=== PATIENT | female | born 1940 | race Caucasian/White ===

== ENCOUNTER 2024-10-13 10:29 | Inpatient (IN) | payer BC, MEDICARE, OTHER ==
[~2024-10-13] VITALS: Ht 172.7 cm; Wt 80.6 kg
[2024-10-13] VITALS (8 sets, daily range): BP systolic 154–171; BP diastolic 57–61; PULSE 58–86; RESP 13–18; TEMP 97.5–97.8; O2SAT 94–98
[~2024-10-13 10:29] MED LIST: ASCO500C18 PO; CALC600T35 PO; CHOL400T8 PO; LIDO700A32 TOP; MAGN400C PO; OMEP20CA15 PO; SIMV-341 PO
--- NOTE | 2024-10-13 10:41 | ELECTROCARDIOGRAPH REPORT ---
[facility] Test Date: 2024-10-13 Test Time: 10:40:03 Pat Name: DAGO MACARIO Department: [facility]- Patient ID: [facility]-[id number] Room: Gender: F Quality Liaison: : 1940 Requested By: FORTINO DE LA CRUZ Order Number: [id number] Reading MD: Dr. Fortino De La Cruz Measurements Intervals [place] Rate: 72 P: 36 RI: 162 QRS: 40 QRSD: 110 T: 31 QT: 456 QTc: 500 Interpretive Statements Sinus rhythm Multiple ventricular premature complexes Low voltage, extremity and precordial leads Abnormal R-wave progression, early transition Minimal ST depression, lateral leads Minimal ST elevation, inferior leads Borderline prolonged QT interval Electronically Signed On 10-13-2024 10:41:[address] Fortino De La Cruz Please click the below link to view image of tracing.
[2024-10-13 11:02] LABS: BASOPHILS # (AUTO) 0.1 X10'3 (0-0.2); BASOPHILS % (AUTO) 1.2 % (0-1); EOSINOPHILS # (AUTO) 0.6 X10'3 (0-0.9); EOSINOPHILS % (AUTO) 8.7 % (0-6); HEMATOCRIT 34.2 % (35.0-45.0); LYMPHOCYTES # (AUTO) 1.6 X10'3 (1.1-4.8); LYMPHOCYTES % (AUTO) 21.3 % (21-51); MEAN CORPUSCULAR HEMOGLOBIN 24.8 PG (27.0-31.0); MEAN CORPUSCULAR HGB CONC 32.3 g/dL (33.0-36.5); MEAN CORPUSCULAR VOLUME 76.7 FL (78-98); MEAN PLATELET VOLUME 8.9 FL (7.4-10.4); MONOCYTES # (AUTO) 0.9 X10'3 (0-0.9); MONOCYTES % (AUTO) 12.4 % (2-12); NEUTROPHILS # (AUTO) 4.1 X10'3 (1.8-7.7); NEUTROPHILS % (AUTO) 56.4 % (42-75); PLATELET COUNT 318 X10'3 (140-440); RED BLOOD COUNT 4.46 X10'6 (4.20-5.60); RED CELL DISTRIBUTION WIDTH 15.8 % (11.5-14.5); WHITE BLOOD COUNT 7.3 X10'3 (4.5-11.0)
--- NOTE | 2024-10-13 11:06 | RADIOLOGY REPORT ---
EXAM: DI CHEST,SINGLE VIEW Indication: CP Technique: Single frontal view of the chest was obtained Comparison: None FINDINGS: Lines and Tubes: None Lungs: Small right pleural effusion and bibasilar opacities. Trace left pleural effusion. No pneumothorax. Cardiomediastinal contours: Unremarkable Bones: No acute osseous abnormality. IMPRESSION: Small right pleural effusion and bibasilar opacities. Trace left pleural effusion.
[2024-10-13 11:12] LABS: ALANINE AMINOTRANSFERASE 21 U/L (12-78); ALBUMIN 3.2 G/DL (3.4-5.0); ALBUMIN/GLOBULIN RATIO 0.9 (1.1-1.5); ALKALINE PHOSPHATASE 88 IU/L (46-116); ANION GAP 5 (8-16); ASPARTATE AMINO TRANSFERASE 17 U/L (10-37); BILIRUBIN,TOTAL 0.5 MG/DL (0.1-1.0); BLOOD UREA NITROGEN 16 MG/DL (7-18); BUN/CREATININE RATIO 15.5 (10.0-20.0); CALCIUM 9.1 MG/DL (8.5-10.1); CHLORIDE 108 MMOL/L (99-107); CREATININE 1.03 MG/DL (0.40-0.90); GLUCOSE 98 MG/DL (70-104); POTASSIUM 4.2 MMOL/L (3.5-5.1); SODIUM 146 MMOL/L (135-145); TOTAL CARBON DIOXIDE 32.8 MMOL/L (24-32); TOTAL PROTEIN 6.6 G/DL (6.4-8.2); eCRCL 42 ML/MIN; eGFR 51 ML/MIN
[2024-10-13 11:15] LABS: APTT 27 SECONDS (22-32); D-DIMER 0.64 MG/L FEU (0-0.50); PROTHROMBIN TIME 10.5 SECONDS (9.0-12.0)
[2024-10-13 11:19] LABS: PRO BRAIN NATRIURETIC PEPTIDE 931 PG/ML (0-450)
--- NOTE | 2024-10-13 12:09 | Physician Documentation ---
History of Present Illness ~ Chief Complaint: Edema Stated Complaint: R/O DVT IN LEGS Time Seen by MD: 10:50 OK to notify your PCP?: Yes Primary Medical Doctor: Benny Source: patient, RN/, RN notes reviewed, old records Mode of Arrival: POV Exam Limitations: no limitations HPI 84 year old female presents to the emergency department after being evaluated by Dr. Elliott. Patient is having leg swelling in the right greater than the left. She states that she has been experiencing recent weakness and shortness of breath. Patient denies any cardiac history and state she does not see a rubber heel and sole press tender. She states that she rarely gets palpitations and cannot identify the last time that she had them. Patient denies any other associated symptoms at this time. Patient denies any other alleviating or exacerbating factors. Medication Reconciliation Allergies: Coded Allergies: No Known Allergies (Unverified , 08/21/18) Scheduled Balsalazide Disodium (Balsalazide Disodium), 1 CAP PO BID, (Reported) Calcium Carbonate (Calcium), PO DAILY, (Reported) Cholecalciferol (Vitamin D), PO DAILY, (Reported) Omeprazole (Omeprazole), 1 CAP PO BID, (Reported) Simvastatin (Zocor), 1 TABLET PO HS, (Reported) Discontinued Medications Lidocaine (Lidoderm), 1 PATCH TOP Q12H PRN Discontinued Reason: Pt. Refused Magnesium Oxide (Magnesium), 1 CAP PO Q2D, (Reported) Discontinued Reason: Pt. Refused Past Medical History Past Medical History: Chronic Back Pain, Spine Compression Past Surgical History: appendectomy, cholecystectomy, hysterectomy Smoking Status: Former smoker Alcohol Use: Occasionally Drug Use: none Lives with: Family Lives In: Home Review of Systems All Other Systems at this time: Reviewed and Negative ROS As stated above in the HPI, otherwise all systems are reviewed and negative. Physical Exam Vital Signs: RN Vital Signs have been reviewed: Yes, Temperature: 97.7, Source: Temporal, Heart Rate: 61, Respiratory Rate: 18, BP: 153/54, Pulse Oximetry: 97, Weight: 81.820 Oxygen Flow Rate: 0 Pulse Oximetry Reflects: adequate oxygenation General Appearance General: The patient is tired and weak, she is well developed, well nourished, nontoxic appearing and is in no acute distress. Skin: [place], warm and dry with no rashes. HEENT: Head was normocephalic and atraumatic. Eyes - pupils equal, round, reactive to light and accommodation. Extraocular movements were intact. Conjunctivae were nonicteric. Ears - bilateral tympanic membranes were normal. The mouth and oropharynx were clear with moist mucous membranes. There were no pharyngeal exudates or erythema. Neck: Supple and nontender. There was no jugular venous distention, lymphadenopathy, thyromegaly or masses. Chest: Crackles at base of lung. No accessory muscle use. No dullness to percussion. Heart: Rate regular and rhythmic. S1, S2. No murmurs. Palpation of the chest wall was normal. No rubs or thrills. Abdomen: Soft, nontender and nondistended. Positive bowel sounds. No guarding or rebound. No hepatosplenomegaly or palpable masses. Extremities: 2+ pitting edema wit swelling on her right leg greater than left. The patient moves all extremities. Pulses were equal and symmetric. Neurologic: Cranial nerves II-XII were intact. Sensation was intact to light touch throughout. Motor strength was 5/5 in all four extremities. Deep tendon reflexes were intact in both upper and lower extremities. Psychologic: The patient was oriented to person, place and time. The patient demonstrated appropriate judgement and insight. Progress Progress Note 1230: The residents were spoken to at this time who were informed on the patients case and kindly agreed to admit the patient to the hospital. Results/Orders Reviewed/noted all lab results: Yes Results/Orders Orders - ERROL GILES MD Chest,Single View (10/13/24 10:35) Monitor (10/13/24 10:35) Saline Lock (10/13/24 10:35) Oxygen (10/13/24 10:35) Electrocardiogram (10/13/24 10:35) Vl Venous (10/13/24 10:43) Page Hospitalist (10/13/24 12:24) Fill Out Med Reconciliation (10/13/24 12:24) Echocardiogram (10/13/24 12:24) Completed Orders - ERROL GILES MD Chest,Single View (10/13/24 10:35) Cbc/Diff (10/13/24 10:35) PBNP (10/13/24 10:35) Electrocardiogram (10/13/24 10:35) CMP (10/13/24 10:35) Hs Troponin I W Calculations (10/13/24 10:35) Hs Troponin I W Calculations (10/13/24 12:35) Hs Troponin I W Calculations (10/13/24 13:35) D-Dimer (10/13/24 10:43) Pt Inr (10/13/24 10:43) PTT (10/13/24 10:43) Vl Venous (10/13/24 10:43) Echocardiogram (10/13/24 12:24) Procalcitonin (10/13/24 12:29) Furosemide 40mg Inj (Lasix Inj) (10/13/24 12:35) C-Reactive Protein (10/13/24 10:41) Vital Signs 10/13/24 10/13/24 10/13/24 10:33 12:11 12:11 Temp 97.7 97.7 Pulse 61 58 Resp 18 16 16 B/P (MAP) 153/54 145/73 (97) Pulse Ox 97 96 O2 Flow Rate 0 0 Laboratory Tests Test 10/13/24 10:41 10/13/24 10:53 White Blood Count 7.3 Red Blood Count 4.46 Hemoglobin 11.0 L Hematocrit 34.2 L Mean Corpuscular Volume 76.7 L Mean Corpuscular Hemoglobin 24.8 L Mean Corpuscular Hemoglobin Concent 32.3 L Red Cell Distribution Width 15.8 H Platelet Count 318 Mean Platelet Volume 8.9 Neutrophils (%) (Auto) 56.4 Lymphocytes (%) (Auto) 21.3 Monocytes (%) (Auto) 12.4 H Eosinophils (%) (Auto) 8.7 H Basophils (%) (Auto) 1.2 H Neutrophils # (Auto) 4.1 Lymphocytes # (Auto) 1.6 Monocytes # (Auto) 0.9 Eosinophils # (Auto) 0.6 Basophils # (Auto) 0.1 CBC Comment Erythrocyte Sedimentation Rate 10 Sodium Level 146 H Potassium Level 4.2 Chloride Level 108 H Carbon Dioxide Level 32.8 H Anion Gap 5 L Blood Urea Nitrogen 16 Creatinine 1.03 H Estimated GFR/1.73 m2 51 BUN/Creatinine Ratio 15.5 Glucose Level 98 Osmolality 300 Calcium Level 9.1 Total Bilirubin 0.5 Aspartate Amino Transf (AST/SGOT) 17 Alanine Aminotransferase (ALT/SGPT) 21 Alkaline Phosphatase 88 Troponin I High Sensitivity 13 C-Reactive Protein 0.21 Pro-B-Type Natriuretic Peptide 931 H Total Protein 6.6 Albumin 3.2 L Globulin 3.4 Albumin/Globulin Ratio 0.9 L Procalcitonin < 0.05 Chemistry Comments Prothrombin Time 10.5 INR International Normalized Ratio 1.0 Activated Partial Thromboplast Time 27 D-Dimer 0.64 H D-Dimer Comment Coagulation Comments Re-Evaluation Re-Evaluation : Re-Evaluation: Improved Progress Patient was seen and examined. Patient was given reassurance. Patient received IV fluids laboratory work was obtained. Patient received some Lasix for heart failure. Echocardiogram is also ordered. There was no obvious signs of in fection so no antibiotics were given at this time. Laboratory work shows normal CBC WBC 7.3 with some anemia hemoglobin hematocrit is 11 and 34. Some microcytic anemia with a MCV of 76.7. No left shift. Troponin x3 were negative. Chemistry shows sodium slightly elevated at 146 potassium 4.2 chloride 108 CO2 32.8 BUN 16 creatinine 1.03. Urinalysis shows a specific gravity of 1.010. CTA of the chest was reassuring including chest and vascular ultrasound. Echocardiogram was also ordered. Thoracentesis has been ordered. I then discussed the case with the hospitalist for admission and further workup and care. Continuous satellite project site monitor interpretation shows normal sinus rhythm heart rate 60s, no ectopy, normal, my interpretation. Pulse oximetry monitor interpretation shows normal oxygenation 98% room air, normal, my interpretation. EKG/XRAY/CT/US/VASC/MRI EKG : Intepreting Monitor?: Yes Additional Comment Ordering Physician: ERROL GILES MD Exam Name: ELECTROCARDIOGRAM Technologist: [facility] Test Date: 2024-10-13 Test Time: 10:40:03 Pat Name: DAGO MACARIO Department: [facility] Patient ID: [id number] Room: Gender: F Communications Equipment Installer: : 1940 Requested By: ERROL GILES Order Number: [id number] Reading MD: Dr. Errol Giles Measurements Intervals [place] Rate: 72 P: 36 [place]: 162 QRS: 40 QRSD: 110 T: 31 QT: 456 QTc: 500 Interpretive Statements Sinus rhythm Multiple ventricular premature complexes Low voltage, extremity and precordial leads Abnormal R-wave progression, early transition Minimal ST depression, lateral leads Minimal ST elevation, inferior leads Borderline prolonged QT interval Electronically Signed On 10-13-2024 10:41:[address] Errol Giles Please click the below link to view image of tracing. Chest X-Ray : Additional Comments Ordering Physician: ERROL GILES MD Exam: CHEST,SINGLE VIEW EXAM: DI CHEST,SINGLE VIEW Indication: CP Technique: Single frontal view of the chest was obtained Comparison: None FINDINGS: Lines and Tubes: None Lungs: Small right pleural effusion and bibasilar opacities. Trace left pleural effusion. No pneumothorax. Cardiomediastinal contours: Unremarkable Bones: No acute osseous abnormality. IMPRESSION: Small right pleural effusion and bibasilar opacities. Trace left pleural effusion. Electronically Signed by:ARELI JACKSON MD Date & Time: 10/13/24 1103 Ultrasound : Impression Bilateral lower extremity venous duplex Clinical History: Pain, swelling Comparison: None Technique: Duplex Doppler evaluation of the deep venous systems of both lower extremities from the common femoral veins to the popliteal veins including color Doppler and spectral/pulsed waveform analysis was performed. Findings: RIGHT SIDE: The common femoral vein demonstrates appropriate compressibility and waveform variability. There is compressibility/patency of the great saphenous vein at the proximal thigh. The femoral vein demonstrates appropriate compressibility and waveform variability. The deep femoral vein demonstrates appropriate compressibility and waveform variability. The popliteal vein demonstrates appropriate compressibility and waveform variability. There is normal compressibility at the tibioperoneal trunk. LEFT SIDE: The common femoral vein demonstrates appropriate compressibility and waveform variability. There is compressibility/patency of the great saphenous vein at the proximal thigh. The femoral vein demonstrates appropriate compressibility and waveform variability. The deep femoral vein demonstrates appropriate compressibility and waveform variability. The popliteal vein demonstrates appropriate compressibility and waveform variability. There is normal compressibility at the tibioperoneal trunk. Impression: No right or left femoropopliteal venous thrombosis. Dictated by:CHRISTOPHER SALMON MD Dictation date and time:10/13/24 1221 Electronically Signed by: CHRISTOPHER SALMON MD Date and Time: 10/13/24 1221 Heart Score: Heart Score Response (Comments) Value History Slightly Suspicious 0 EKG Normal 0 Age >65 2 Risk Factors 1 or 2 risk factors 1 Troponin Normal limit 0 Total 3 Medical Decision Making Differential Dx:Considerations: Include: martinez's cyst, Cancer, Cellulitis, Congestive heart failure, Compartment syndrome, Contusion, Deep venous thrombosis, Liver failure, Malnutrition, Muscle spasm, Plantaris rupture, Popliteal vein aneurysm, Renal faliure, Strain, Superfic thrombophlebitis, Venous insufficiency, Other Departure Time of Disposition: 12:30 Disposition: 09 ADMITTED INPATIENT Admitted to Inpatient Unit: yes, to hospitalist Admission Level of Care: PCU with Tele Impression: Primary Impression: Pleural effusion Additional Impressions: Peripheral edema Heart failure Condition: Fair Referrals: NO PRIMARY CARE PROVIDER (PCP) Education Educated: Patient Educated regarding: diagnosis, need for follow up Signature Scribe Signature: Scribed for Errol Giles MD by Uche Reddy . 10/13/24 12:34 Attestation: The note accurately reflects work and decisions made by me.Errol Giles MD 10/13/24 12:09 ERROL GILES MD Oct 13, 2024 12:09 UCHE GIRALDO Oct 13, 2024 12:34
[2024-10-13] MEDS ORDERED: furosemide 10 MG/1 ML 10ml inj IV ONE (12:20)
--- NOTE | 2024-10-13 12:24 | VASCULAR REPORT ---
Bilateral lower extremity venous duplex Clinical History: Pain, swelling Comparison: None Technique: Duplex Doppler evaluation of the deep venous systems of both lower extremities from the common femora l veins to the popliteal veins including color Doppler and spectral/pulsed waveform analysis was perf ormed. Findings: RIGHT SIDE: The common femoral vein demonstrates appropriate compressibility and waveform variability. There is compressibility/patency of the great saphenous vein at the proximal thigh. The femoral vein demonstrates appropriate compressibility and waveform variability. The deep femoral vein demonstrates appropriate compressibility and waveform variability. The popliteal vein demonstrates appropriate compressibility and waveform variability. There is normal compressibility at the tibioperoneal trunk. LEFT SIDE: The common femoral vein demonstrates appropriate compressibility and waveform variability. There is compressibility/patency of the great saphenous vein at the proximal thigh. The femoral vein demonstrates appropriate compressibility and waveform variability. The deep femoral vein demonstrates appropriate compressibility and waveform variability. The popliteal vein demonstrates appropriate compressibility and waveform variability. There is normal compressibility at the tibioperoneal trunk. Impression: No right or left femoropopliteal venous thrombosis.
[2024-10-13] MEDS ORDERED: mag hydrox/Alum hydrox/simeth 30ml oral suspension PO PRN (12:35)
[2024-10-13] MEDS ORDERED: ondansetron/PF 4mg/2ml inj IV PRN (12:35)
[2024-10-13] MEDS ORDERED: acetaminophen 325mg tablet PO PRN (12:35)
[2024-10-13] MEDS ORDERED: potassium Cl 40MEQ/1/2NS 520ml 520 ML IV PRN (12:35)
[2024-10-13] MEDS ORDERED: magnesium Cl slow-release 64mg tablet PO PRN (12:35)
[2024-10-13] MEDS ORDERED: magnesium sulf-water 2g/50mL 50 ML IV PRN (12:35)
[2024-10-13] MEDS ORDERED: potassium Cl 20 mEq SR tablet PO PRN ×2 (12:35)
[2024-10-13] MEDS ORDERED: magnesium sulf-water 4G/100mL 100 ML IV PRN (12:35)
[2024-10-13] MEDS ORDERED: ipratropium/albuterol 3ml nebule NEB PRN (13:35)
[2024-10-13 14:03] LABS: C-REACTIVE PROTEIN 0.21 MG/DL (0.0-0.5)
--- NOTE | 2024-10-13 14:04 | HISTORY AND PHYSICAL-Residence ---
History & Physical Providers to CC Resident Creating Document: LAMIN ACOSTA, RES ~ History of Present Illness Primary Medical Doctor: Dr. 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 The patient mentioned that she started feeling shortness of breath approximately three weeks ago. Among the exacerbating factors the patient mentioned that her symptoms is worse with activity being able to walk half a block before she gets short of breath The patient also endorses orthopnea which started approximately one month ago. She currently uses one pillow for sleeping but she noticed shortness of breath when she lays down flat or over her side. Associated to her shortness of breath she also endorses bilateral lower extremity swelling and pain 7/10 in intensity, without radiation, described as sharp pain, which started approximately at the same time. The patient also mentioned diarrhea which started one month ago, she has been following her primary care physician Dr. Zapata and a new medication for ulcerative colitis was started. The patient endorses that she has been having diarrhea, her last episode this morning described as brown in color, liquid, denies any recent history of travel or immobilization. The patient currently denies chest pain, palpitations, abdominal pain, urinary symptoms. Allergies: Coded Allergies: No Known Allergies (Unverified , 08/21/18) Home Medications Home Medications Active Lidoderm (Lidocaine) 1 Each Adh..patch 1 Patch TOP Q12H PRN 5 Days Reported Magnesium (Magnesium Oxide) 400 Mg Capsule 1 Cap PO Q2D Calcium (Calcium Carbonate) 600 Mg Tablet PO DAILY Vitamin C (Ascorbic Acid) 500 Mg Capsule.er 1 Cap PO DAILY 30 Days Vitamin D (Cholecalciferol) 400 Unit Tablet PO DAILY Zocor (Simvastatin) 10 Mg Tablet 1 Tablet PO HS Omeprazole 20 Mg Capsule. 1 Cap PO BID Past Medical History Past Medical History Ulcerative colitis diagnosed last year. Started balsalazide two weeks ago. Whelan esophagus diagnosed three years ago, following Dr. Jacobo. Taking omeprazole 20 mg daily. Past Surgical History Surgical History Comment Hysterectomy at the age of [age] years old because of uterus bleeding. Appendectomy at her earlier 40s. Cholecystectomy at her late 40s. Bilateral Oophorectomy. She got an endoscopy this year showing her whelan esophagus. Last colonoscopy seven years ago reported as normal. Past Social History Smoking: Quit greater than 1 year (Quit smoking in 2018, she used to smoke half a pack a day for at least 10 years.) Alcohol Use: Rarely Drug Use: None Lives with: Alone (Per patient her daughter and granddaughter lives in the town. 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 HEENT: Conjunctive are pink, sclerae clear, no icterus, pupil is equal in both sides, reactive to light, no ear discharge, no pharyngeal erythema or an edema. Neck: Supple, no JVD, no lymphadenopathy and thyromegaly. Chest: Equal air entry on both lungs, presence of crackles in bilateral bases, dullness to percussion in bilateral bases of the lungs. Cardiovascular: S1-S2 regular sinus rhythm and, regular rate, no gallops, no rubs, no murmurs Abdomen: No visible peristalsis, Bowel sounds present on auscultation, soft, nontender, no guarding, no rigidity Extremities: No obvious deformities, 3+ lower extremity edema, capillary refill intact, peripheral pulsations are intact on both sides Central Nervous System: No focal neurological deficits, no motor or sensory weakness in all 4 extremities, could move all 4 extremities, 2+ deep tendon reflexes, negative Babinski. Musculoskeletal: No joint swelling, deformities, inflammations, and no scoliosis and back tenderness Skin: Warm and dry. Diagnostic Data Last Recorded Lab Results: 10/13/24 1041 10/13/24 1041 Diagnostic Data: Laboratory Tests Test 10/13/24 10:53 Prothrombin Time 10.5 SECONDS (9.0-12.0) INR International Normalized Ratio 1.0 INR Activated Partial Thromboplast Time 27 SECONDS (22-32) D-Dimer 0.64 MG/L FEU (0-0.50) H D-Dimer Comment Coagulation Comments Advance Care Planning Advanced Care plannin - 30 Minutes (I spent a total of 17 minutes on reviewing various resuscitative measures/ACP with the patient at the time of admission. The patient has decided on a full code status.) Additional Plan Assessment and plan: 84 years old female patient came to the hospital with chief complaint of shortness of breaths lower extremity swelling. Bacterial pneumonia: Covering Gram-positive and Gram-negative microorganisms: Curb 65: 2 moderate risk group: 6.8% 30 day mortality. Possible acute exacerbation of diastolic congestive heart failure with preserved ejection fraction: Possible cor pulmonale: Wells score: 3, D-dimer elevated: The patient came to the hospital with chief complaint of shortness of breath. Evidenced crackles in bilateral bases in physical exam. On physical exam bilateral 3+ pedal lower extremity edema is evidenced. Chest x-ray showing: Small right pleural effusion and bibasilar opacities. Trace left pleural effusion. ProBNP 931. Echocardiogram: LVEF 60%. RVSP 50 mmHg. Right ventricle appears mildly dilated with normal contractility. Left atrium mildly dilated. Follow-up CTA of the chest. Ceftriaxone 1 g daily. Azithromycin 500 mg daily. Culturelle 58861 mg p.o. b.i.d. DuoNebs q.4h PRN. DuoNebs q.6h scheduled. Furosemide 40 mg IV b.i.d. Incentive spirometry every 2 hours while awake. Acute kidney injury on CKD likely secondary to renal tubular stasis: Current creatinine 1.03, GFR 51. Unknown baseline creatinine. Elevated proBNP 931. Follow-up urine lytes. Lactated ringer 20 mL/hour. Acute diarrhea: Ulcerative colitis: The patient came to the hospital endorsing that she has been experiencing diarrhea for the last month on and off. She reported her last episode of diarrhea this morning. Follow-up C diff. Follow-up of on parasite. Follow-up stool culture. We will continue balsalazide 750 mg b.i.d. after med reconciliation. Whelan's esophagus: GERD: Pantoprazole 40 mg p.o. daily. Code status: Full code DVT prophylaxis: SCDs and heparin. Analgesia/sedation: None Line/tube: PIV GI prophylaxis: Protonix Nutrition: Heart healthy diet PT: Ordered Prognosis: Guarded Disposition: The patient will be admitted to ortho floor with telemetry. Lamin Martins Internal Medicine Resident [facility] Date of Service: Oct 13, 2024 Billing Provider: SIMEON VERMA MD, FRANCO LUIS, RES Oct 13, 2024 14:03
[2024-10-13] MEDS ORDERED: iohexol 350MG/ML 100ml bottle IV ONE (14:37)
[2024-10-13] MEDS: ipratropium/albuterol 3ml nebule NEB SCH (14:41)
[2024-10-13] MEDS: furosemide 40mg/4ml inj IV ONE (16:39)
[2024-10-13] MEDS: lactobacillus rhamnosus 10,000 MMU CELLS/CAPSULE PO SCH (16:40)
[2024-10-13] MEDS: azithromycin 250mg tablet PO SCH (17:09)
[2024-10-13] MEDS: normal saline 500ml IV soln 500 ML IV ONE (17:09)
[2024-10-13] MEDS: azithromycin 250mg tablet PO ONE (18:30)
[2024-10-13] MEDS: methylPREDNISolone sod succ 125mg/2ml vial IV ONE (18:50)
[2024-10-13] MEDS: predniSONE 20 mg tablet PO ONE (18:51)
[2024-10-13 19:05] LABS: BILIRUBIN,URINE NEGATIVE (Neg); CLARITY,URINE CLEAR (Clear); COLOR,URINE YELLOW (Yellow); GLUCOSE, URINE NEGATIVE (Neg); KETONES,URINE NEGATIVE (Neg); LEUKOCYTE ESTERASE ,URINE NEGATIVE (Neg); OCCULT BLOOD,URINE NEGATIVE (Neg); PH,URINE 6.5 (4.8-8.0); PROTEIN,URINE NEGATIVE (Neg); UROBILINOGEN,URINE 0.2 E.U/dL (0.2-1.0)
--- NOTE | 2024-10-13 19:20 | CARDIOLOGY REPORT ---
APPROVED REPORT EXAM: Comprehensive 2D, Doppler, and color-flow Echocardiogram. 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 130.7 cm/s AoV VTI 31.3 cm AO Peak GR. 6.8 mmHg AO Mean GR. 3 mmHg LVOT VTI 30.11 cm LVOT Peak Aiden. 107.8 cm/s REJI(VTI)/BSA 3.03 cm2/m2 ERJI (VTI) 3.03 cm2 Mitral Valve MV E Velocity 91.3 cm/s MV Peak Gr. 4 mmHg MV DECEL TIME 188 ms MV A Velocity 55.8 cm/s MV PHT 48 ms E/A Ratio 1.6 MVA (PHT) 4.58 cm2 MV VMax98.4 cm/s TDI Medial E' P. V 8.14 cm/s E/Medial E' 11.2 Tricuspid Valve TR P. Velocity 316 cm/s RAP ESTIMATE 10 mmHg TR Peak Gr. 40 mmHg RVSP 50 mmHg Pulmonary Vein S1 Velocity 24.1 cm/s D2 Velocity 53.3 cm/s PVa Idwkittw92.9 cm/s PVa Pbpnzlue97 msec LEFT VENTRICLE LV is normal in size with mild septal hypertrophy. Overall systolic function is normal. overallLVEF is 60%. RIGHT VENTRICLE RV appears mildly dilated with normal contractility. RVSP is estimated at 50 mmHG. ATRIA Left atrium is mildly dilated. AORTIC VALVE Trileaflet AV appears sclerotic without stenosis. No insufficiency. MITRAL VALVE MV is thickened with mild annular calcification and no stenosis. mild toModerate mitral regurgitation . TRICUSPID VALVE The tricuspid valve is normal in structure. Trace tricuspid regurgitation. PULMONIC VALVE The pulmonary valve is normal in structure. Trace pulmonic regurgitation. GREAT VESSELS The aortic root is normal in size. The ascending aorta is normal in size. The IVC is normal in size a nd collapses >50% with inspiration. PERICARDIUM There is no pericardial effusion. Other Information Study Quality: Adequate Conclusion overallLVEF is 60%. LV is normal in size with mild septal hypertrophy. Overall systolic function is normal. RV appears mildly dilated with normal contractility. RVSP is estimated at 50 mmHG. Trileaflet AV appears sclerotic without stenosis. No insufficiency. mild toModerate mitral regurgitation. Trace tricuspid regurgitation. Trace pulmonic regurgitation. There is no pericardial effusion.
[2024-10-13 19:25] LABS: SODIUM,URINE RANDOM 127 MEQ/L; TOTAL PROTEIN,URINE RANDOM < 6.0 MG/DL
[2024-10-13 19:31] LABS: NITRITES, URINE NEGATIVE (Neg); UA COLLECTION TYPE CLN CATCH MIDSTREAM
[2024-10-13 19:39] LABS: OSMOLALITY UA 509 MOSM/K (50-1400)
[2024-10-13 19:41] LABS: UA EOSINOPHILS FEW EOS /HPF
[2024-10-13] MEDS: K and/or MAG REPLACEMENT MC SCH (20:00)
[2024-10-13] MEDS ORDERED: docusate sod 100mg capsule PO SCH (20:00)
[2024-10-13] MEDS ORDERED: furosemide 10 MG/1 ML 10ml inj IV SCH (20:00)
[2024-10-13] MEDS: metoprolol succinate 25mg (24-HOUR) SR. Tablet PO SCH (20:07)
[2024-10-13] MEDS: furosemide 40mg/4ml inj IV SCH (20:07)
[2024-10-13] MEDS: CefTRIAXone/D5W-Rocephin 1gm 50 ML IV SCH (20:58)
[2024-10-13] MEDS: ringers solution, lacted 1,000 ML IV SCH (21:29)
[2024-10-14] VITALS (9 sets, daily range): BP systolic 115–145; BP diastolic 40–57; PULSE 60–68; RESP 16–18; TEMP 97.3–98.3; O2SAT 92–99
[2024-10-14 04:54] LABS: BASOPHILS % (AUTO) 0.3 % (0-1); EOSINOPHILS % (AUTO) 0.1 % (0-6); HEMATOCRIT 33.8 % (35.0-45.0); HEMOGLOBIN 11.1 g/dl (12.0-16.0); LYMPHOCYTES # (AUTO) 1.4 X10'3 (1.1-4.8); LYMPHOCYTES % (AUTO) 19.5 % (21-51); MEAN CORPUSCULAR HEMOGLOBIN 24.7 PG (27.0-31.0); MEAN CORPUSCULAR HGB CONC 32.9 g/dL (33.0-36.5); MONOCYTES % (AUTO) 0.7 % (2-12); NEUTROPHILS # (AUTO) 5.5 X10'3 (1.8-7.7); NEUTROPHILS % (AUTO) 79.4 % (42-75); PLATELET COUNT 299 X10'3 (140-440); RED CELL DISTRIBUTION WIDTH 15.8 % (11.5-14.5); WHITE BLOOD COUNT 6.9 X10'3 (4.5-11.0)
[2024-10-14 05:28] LABS: ALANINE AMINOTRANSFERASE 24 U/L (12-78); ALBUMIN 3.3 G/DL (3.4-5.0); ALBUMIN/GLOBULIN RATIO 0.9 (1.1-1.5); ALKALINE PHOSPHATASE 89 IU/L (46-116); ANION GAP 7 (8-16); ASPARTATE AMINO TRANSFERASE 14 U/L (10-37); BILIRUBIN,TOTAL 0.4 MG/DL (0.1-1.0); BLOOD UREA NITROGEN 18 MG/DL (7-18); BUN/CREATININE RATIO 17.5 (10.0-20.0); CALCIUM 9.3 MG/DL (8.5-10.1); CHLORIDE 106 MMOL/L (99-107); CREATININE 1.03 MG/DL (0.40-0.90); GLUCOSE 183 MG/DL (70-104); MAGNESIUM 1.8 MG/DL (1.5-2.4); POTASSIUM 4.4 MMOL/L (3.5-5.1); PRO BRAIN NATRIURETIC PEPTIDE 1402 PG/ML (0-450); SODIUM 145 MMOL/L (135-145); TOTAL CARBON DIOXIDE 31.8 MMOL/L (24-32); TOTAL PROTEIN 6.9 G/DL (6.4-8.2); eCRCL 42 ML/MIN; eGFR 51 ML/MIN
[2024-10-14] MEDS ORDERED: methylPREDNISolone sod succ 125mg/2ml vial IV SCH (06:00)
[2024-10-14] MEDS: predniSONE 20 mg tablet PO SCH (07:30)
[2024-10-14] MEDS: losartan 25mg tablet PO SCH (07:56)
--- NOTE | 2024-10-14 08:02 | RADIOLOGY REPORT ---
CLINICAL INFORMATION: 84 years old, Female; Shortness of breath. TECHNIQUE: Axial CTA images of the chest were obtained after the uneventful administration of 100 mL of Omnipaque 350 IV contrast. Coronal and sagittal reformatted images and MIP images were obtained, reviewed, and stored. One or more of the following dose reduction techniques were used: Automated exp osure control. Adjustment of mA and/or kV according to patient size. CTDIvol = 27.15, 12.69, 0.07, 0.07 mGy DLP = 483.88 mGy-cm COMPARISON: Chest radiograph dated 10/13/2024 FINDINGS: Pulmonary arteries: No evidence of pulmonary embolism. Aorta: No aneurysm or evidence of dissection. Moderate atherosclerotic calcification. Cardiac: Mild cardiomegaly. [id number] coronary artery calcification. Mediastinum/jailene: No mass or adenopathy. Lungs: Moderate right and small left pleural effusions with overlying atelectasis. Mild interlobular septal thickening, may be seen with a mild degree of interstitial pulmonary edema / pulmonary vascula r congestion in the appropriate clinical setting. No focal consolidation. No pneumothorax. Respirator y motion artifact limits evaluation for subtle findings. Chest wall: Visualized portions of the chest wall appear unremarkable. Upper abdomen: Hepatic steatosis. Cholecystectomy. Moderate fatty infiltration of the pancreas. Bones: No fracture or suspicious intraosseous lesions. IMPRESSION: 1. No evidence for pulmonary embolism. 2. Moderate right and small left pleural effusions with overlying atelectasis. 3. Mild interlobular septal thickening, may be seen with interstitial pulmonary edema or pulmonary va scular congestion in the appropriate clinical setting. 4. Additional findings as described above.
[2024-10-14] MEDS ORDERED: BALS750C PO (11:31)
--- NOTE | 2024-10-14 12:44 | PROGRESS NOTE- Residence ---
Progress Note - Resident Providers to CC Resident Creating Document: WALTER ANGIEDARCIE Feilz, RES ~ Antibiotic Timeout Antibiotic Ordered?: Yes Subjective The patient has been evaluated at the bedside, the patient reports significant improvement of symptoms. Her main symptom fatigue and shortness of breath has improved. Objective Vital Signs Date Time Temp Pulse Resp B/P (MAP) Pulse Ox O2 Delivery O2 Flow Rate FiO2 10/14/24 10:22 97.8 68 16 138/49 (78) 95 Room Air 10/14/24 08:00 0.0 21 Physical exam: General: Well alert, well oriented, not confused, not agitated, not in acute distress, well cooperated during the physical. HEENT: Conjunctive are pink, sclerae clear, no icterus, pupil is equal in both sides, reactive to light, no ear discharge, no pharyngeal erythema or an edema. Neck: Supple, no JVD, no lymphadenopathy and thyromegaly. Chest: Equal air entry on both lungs, presence of crackles in bilateral bases- mild improved, dullness to percussion in bilateral bases of the lungs. Cardiovascular: S1-S2 regular sinus rhythm and, regular rate, no gallops, no rubs, no murmurs Abdomen: No visible peristalsis, Bowel sounds present on auscultation, soft, nontender, no guarding, no rigidity Extremities: No obvious deformities, 2+ lower extremity edema, capillary refill intact, peripheral pulsations are intact on both sides Central Nervous System: No focal neurological deficits, no motor or sensory weakness in all 4 extremities, could move all 4 extremities, 2+ deep tendon reflexes, negative Babinski. Musculoskeletal: No joint swelling, deformities, inflammations, and no scoliosis and back tenderness Skin: Warm and dry. Result Diagram: 10/14/24 0414 10/14/24 0414 Coagulation Studies Laboratory Tests Test 10/13/24 10:53 Prothrombin Time 10.5 SECONDS (9.0-12.0) INR International Normalized Ratio 1.0 INR Activated Partial Thromboplast Time 27 SECONDS (22-32) D-Dimer 0.64 MG/L FEU (0-0.50) H D-Dimer Comment Coagulation Comments Assessment Assessment 84 years old female patient came to the hospital with chief complaint of shortness of breaths lower extremity swelling. Plan Plan Bacterial pneumonia: Covering Gram-positive and Gram-negative microorganisms: Curb 65: 2 moderate risk group: 6.8% 30 day mortality. Bilateral pleural effusions: Acute exacerbation of diastolic congestive heart failure with preserved ejection fraction with ejection fraction of 60%: Cor pulmonale: Pulmonary embolism-ruled out: Wells score: 3, D-dimer elevated: The patient came to the hospital with chief complaint of shortness of breath. Evidenced crackles in bilateral bases in physical exam. On physical exam bilateral 2+ pedal lower extremity edema was evidenced during admission. Chest x-ray showing: Small right pleural effusion and bibasilar opacities. Trace left pleural effusion. ProBNP [id number]. Echocardiogram: LVEF 60%. RVSP 50 mmHg. Right ventricle appears mildly dilated with normal contractility. Left atrium mildly dilated. CTA of the chest: No evidence for pulmonary embolism. Moderate right and small left pleural effusions with overlying atelectasis. Mild interlobular septal thickening, may be seen with interstitial pulmonary edema or pulmonary vascular congestion in the appropriate clinical setting. Thoracentesis was ordered, no enough fluid to be removed. Ceftriaxone 1 g daily. Azithromycin 500 mg daily. Prednisone 20 mg daily. Culturelle 27351 mg p.o. b.i.d. DuoNebs q.4h PRN. DuoNebs q.6h scheduled. Furosemide 40 mg IV b.i.d. Incentive spirometry every 2 hours while awake. Acute on chronic kidney failure, possible ATN: Interstitial nephritis: Current creatinine 1.03, GFR 51. Unknown baseline creatinine. Elevated proBNP 931. Urine lytes: FeNa: 2.1%, fractional excretion of urea: 52.5%, urine sodium: 127, urinalysis/serum osmolality 1.67. Showing intrinsic GERA. Patient is currently on prednisone 20 mg daily. Acute diarrhea: Ulcerative colitis: The patient came to the hospital endorsing that she has been experiencing diarrhea for the last month on and off. She reported her last episode of diarrhea this morning. Follow-up C diff. Follow-up ova and parasite. Follow-up stool culture and occult stool blood. We will continue balsalazide 750 mg b.i.d. after med reconciliation. Wilks's esophagus: GERD: Pantoprazole 40 mg p.o. daily. Code status: Full code DVT prophylaxis: SCDs. Analgesia/sedation: None Line/tube: PIV GI prophylaxis: Protonix Nutrition: Heart healthy diet PT: Ordered Prognosis: Guarded Disposition: Pending physical therapy evaluation. Anticipated discharge tomorrow. Darcie Martins Internal Medicine Resident [facility] Date of Service: Oct 14, 2024 Billing Provider: SIMEON VERMA MD,DARCIE PENDLETON, RES Oct 14, 2024 12:44
[2024-10-14] MEDS: simvastatin 20mg tablet PO SCH (20:20)
[2024-10-15] VITALS (10 sets, daily range): BP systolic 115–139; BP diastolic 34–53; PULSE 57–79; RESP 15–18; TEMP 97.6–98; O2SAT 93–97
[2024-10-15 06:29] LABS: BASOPHILS # (AUTO) 0.1 X10'3 (0-0.2); BASOPHILS % (AUTO) 0.5 % (0-1); EOSINOPHILS # (AUTO) 0.2 X10'3 (0-0.9); EOSINOPHILS % (AUTO) 1.9 % (0-6); HEMATOCRIT 31.7 % (35.0-45.0); HEMOGLOBIN 10.4 g/dl (12.0-16.0); LYMPHOCYTES # (AUTO) 2.5 X10'3 (1.1-4.8); LYMPHOCYTES % (AUTO) 23.5 % (21-51); MEAN CORPUSCULAR HEMOGLOBIN 24.7 PG (27.0-31.0); MEAN CORPUSCULAR HGB CONC 32.9 g/dL (33.0-36.5); MEAN CORPUSCULAR VOLUME 75.2 FL (78-98); MEAN PLATELET VOLUME 9.2 FL (7.4-10.4); MONOCYTES # (AUTO) 1.3 X10'3 (0-0.9); NEUTROPHILS # (AUTO) 6.6 X10'3 (1.8-7.7); NEUTROPHILS % (AUTO) 62.1 % (42-75); PLATELET COUNT 296 X10'3 (140-440); RED BLOOD COUNT 4.21 X10'6 (4.20-5.60); RED CELL DISTRIBUTION WIDTH 15.8 % (11.5-14.5); WHITE BLOOD COUNT 10.6 X10'3 (4.5-11.0)
[2024-10-15 06:40] LABS: ALANINE AMINOTRANSFERASE 21 U/L (12-78); ALBUMIN 3.1 G/DL (3.4-5.0); ALBUMIN/GLOBULIN RATIO 1.1 (1.1-1.5); ALKALINE PHOSPHATASE 71 IU/L (46-116); ANION GAP 5 (8-16); ASPARTATE AMINO TRANSFERASE 16 U/L (10-37); BILIRUBIN,TOTAL 0.4 MG/DL (0.1-1.0); BLOOD UREA NITROGEN 29 MG/DL (7-18); CALCIUM 8.9 MG/DL (8.5-10.1); CHLORIDE 105 MMOL/L (99-107); CREATININE 1.16 MG/DL (0.40-0.90); GLUCOSE 109 MG/DL (70-104); MAGNESIUM 2.1 MG/DL (1.5-2.4); POTASSIUM 3.7 MMOL/L (3.5-5.1); SODIUM 146 MMOL/L (135-145); TOTAL CARBON DIOXIDE 35.6 MMOL/L (24-32); eCRCL 37 ML/MIN; eGFR 45 ML/MIN
[2024-10-15] MEDS: normal saline 500ml IV soln 500 ML IV ONE (12:25)
--- NOTE | 2024-10-15 15:59 | PROGRESS NOTE ---
Progress Note - Angio Providers to CC ~ Angio Progress Note: Yesterdays US thorax at bedside showed only a small effusion bilaterally, likely risks outweigh benefits of doing thoracentesis currently. DOLORES MARK MD Oct 15, 2024 15:59
--- NOTE | 2024-10-15 16:05 | RADIOLOGY REPORT ---
Ultrasound chest Limited HISTORY: Evaluate for possible bilateral pleural effusions needing drainage. Real-time ultrasound examination of the chest at bedside demonstrates only small bilateral pleural effusions. The risks of thoracentesis would likely outweigh the benefits at this time. IMPRESSION: Small bilateral pleural effusions. Thoracentesis not performed at this time.
[2024-10-15] MEDS: guaiFENesin ER 600mg tablet PO PRN (17:06)
--- NOTE | 2024-10-15 18:33 | PROGRESS NOTE- Residence ---
Progress Note - Resident Providers to CC Resident Creating Document: CARLOS ALBERTO RUIZ RES ~ Antibiotic Timeout Antibiotic Ordered?: Yes Subjective Patient seen and examined at the bedside, fatigue tiredness improved. Did not have any diarrhea/loose stool during the hospital. She does not need C diff testing. Objective Vital Signs Date Time Temp Pulse Resp B/P (MAP) Pulse Ox O2 Delivery O2 Flow Rate FiO2 10/15/24 16:02 67 16 Room Air 21 10/15/24 15:51 97 0 10/15/24 10:00 97.7 115/34 (61) Result Diagram: 10/15/24 0550 10/15/24 0550 General: Awake and Alert, no acute distress. HEENT: Conjunctiva pink, Sclera clear, Mucus Membranes moist. Neck: Supple without masses and tenderness. Resp: Mild bibasilar crackle Heart: Regular Rate and rhythm, normal S1 and S2 without murmur Abdomen: Soft and non tender no organomegaly Extremities: Bilateral 1+ lower extremity edema, 2+ pulses Skin: Warm and Dry. Neurological: Speech is clear, alert, and oriented x 4, no gross neurological deficits Coagulation Studies Laboratory Tests Test 10/13/24 10:53 Prothrombin Time 10.5 SECONDS (9.0-12.0) INR International Normalized Ratio 1.0 INR Activated Partial Thromboplast Time 27 SECONDS (22-32) D-Dimer 0.64 MG/L FEU (0-0.50) H D-Dimer Comment Coagulation Comments Assessment Assessment 84 years old female patient came to the hospital with chief complaint of shortness of breaths lower extremity swelling. Plan Plan Bacterial pneumonia: Covering Gram-positive and Gram-negative microorganisms: Curb 65: 2 moderate risk group: 6.8% 30 day mortality. Small Bilateral pleural effusions Acute exacerbation of diastolic congestive heart failure with preserved ejection fraction with ejection fraction of 60%: Cor pulmonale: Pulmonary embolism-ruled out: Wells score: 3, D-dimer elevated: The patient came to the hospital with chief complaint of shortness of breath. Evidenced crackles in bilateral bases in physical exam. On physical exam bilateral 2+ pedal lower extremity edema was evidenced during admission. Chest x-ray showing: Small right pleural effusion and bibasilar opacities. Trace left pleural effusion. ProBNP [id number]. Echocardiogram: LVEF 60%. RVSP 50 mmHg. Right ventricle appears mildly dilated with normal contractility. Left atrium mildly dilated. CTA of the chest: No evidence for pulmonary embolism. Moderate right and small left pleural effusions with overlying atelectasis. Mild interlobular septal thickening, may be seen with interstitial pulmonary edema or pulmonary vascular congestion in the appropriate clinical setting. Thoracentesis was ordered, no enough fluid to be removed. On Ceftriaxone 1 g daily. Azithromycin 500 mg daily. Prednisone 20 mg daily. Culturelle 27335 mg p.o. b.i.d. DuoNebs q.4h PRN. DuoNebs q.6h scheduled. Furosemide 40 mg IV b.i.d. Incentive spirometry every 2 hours while awake. Acute on chronic kidney failure, possible ATN: Interstitial nephritis On admission creatinine 1.03, GFR 51. Unknown baseline creatinine. Elevated proBNP 931. Urine lytes: FeNa: 2.1%, fractional excretion of urea: 52.5%, urine sodium: 127, urinalysis/serum osmolality 1.67. Showing intrinsic GERA. Patient is currently on prednisone 20 mg daily. Kidney function declining mildly, we will decrease the dose of Lasix, 500 cc NL bolus ordered History of recent loose stool Ulcerative colitis The patient came to the hospital endorsing that she has been experiencing diarrhea for the last month on and off. She reported her last episode of diarrhea this morning. Patient did not have any loose stool/any bowel movement during the hospitalization C diff canceled No bowel movement to test for stool exam, or occult blood We will continue balsalazide 750 mg b.i.d. after med reconciliation. Wilks's esophagus: GERD: Pantoprazole 40 mg p.o. daily. Code status: Full code DVT prophylaxis: SCDs. Analgesia/sedation: None Line/tube: PIV GI prophylaxis: Protonix Nutrition: Heart healthy diet PT: Ordered Prognosis: Guarded Disposition: We will continue monitoring patient in ortho floor, discharge tomorrow Carlos Alberto Ruiz MD Internal Medicine Resident Date of Service: Oct 15, 2024 Billing Provider: SIMEON VERMA MD, ELAHE, RES Oct 15, 2024 18:33
[2024-10-16] VITALS (8 sets, daily range): BP systolic 130–151; BP diastolic 46–64; PULSE 58–75; RESP 16–18; TEMP 97.1–98; O2SAT 94–99
[2024-10-16 06:11] LABS: BASOPHILS % (AUTO) 0.4 % (0-1); EOSINOPHILS # (AUTO) 0.3 X10'3 (0-0.9); EOSINOPHILS % (AUTO) 2.9 % (0-6); HEMATOCRIT 31.2 % (35.0-45.0); HEMOGLOBIN 10.2 g/dl (12.0-16.0); LYMPHOCYTES # (AUTO) 2.7 X10'3 (1.1-4.8); LYMPHOCYTES % (AUTO) 28.4 % (21-51); MEAN CORPUSCULAR HEMOGLOBIN 24.6 PG (27.0-31.0); MEAN CORPUSCULAR HGB CONC 32.8 g/dL (33.0-36.5); MEAN PLATELET VOLUME 8.9 FL (7.4-10.4); MONOCYTES # (AUTO) 0.9 X10'3 (0-0.9); MONOCYTES % (AUTO) 9.4 % (2-12); NEUTROPHILS # (AUTO) 5.6 X10'3 (1.8-7.7); NEUTROPHILS % (AUTO) 58.9 % (42-75); PLATELET COUNT 281 X10'3 (140-440); RED BLOOD COUNT 4.16 X10'6 (4.20-5.60); RED CELL DISTRIBUTION WIDTH 15.6 % (11.5-14.5); WHITE BLOOD COUNT 9.6 X10'3 (4.5-11.0)
[2024-10-16 06:56] LABS: ANION GAP 6 (8-16); CHLORIDE 108 MMOL/L (99-107); POTASSIUM 3.9 MMOL/L (3.5-5.1); SODIUM 145 MMOL/L (135-145); TOTAL CARBON DIOXIDE 31.4 MMOL/L (24-32)
[2024-10-16 07:12] LABS: ALANINE AMINOTRANSFERASE 18 U/L (12-78); ALKALINE PHOSPHATASE 69 IU/L (46-116); ASPARTATE AMINO TRANSFERASE 11 U/L (10-37); BILIRUBIN,TOTAL 0.5 MG/DL (0.1-1.0); BLOOD UREA NITROGEN 26 MG/DL (7-18); CALCIUM 8.6 MG/DL (8.5-10.1); GLUCOSE 108 MG/DL (70-104); MAGNESIUM 2.1 MG/DL (1.5-2.4); eCRCL 43 ML/MIN; eGFR 53 ML/MIN
[2024-10-16] MEDS ORDERED: furosemide 40mg/4ml inj IV SCH (08:00)
[2024-10-16] MEDS: furosemide 20 MG/2 ML vial IV SCH (09:12)
[2024-10-16] MEDS ORDERED: EMPAGLIFLOZIN 10 MG TABLET PO SCH (10:00)
[2024-10-16] MEDS ORDERED: PANT40TA54 PO (11:17)
[2024-10-16] MEDS ORDERED: LOSA25TA41 PO (11:17)
[2024-10-16] MEDS ORDERED: EMPA10TA PO (11:17)
[2024-10-16] MEDS ORDERED: CEFD300C3 PO (11:17)
[2024-10-16] MEDS ORDERED: LACT1CAP26 PO (11:17)
[2024-10-16] MEDS ORDERED: METO-395 PO (11:18)
[2024-10-16] MEDS ORDERED: FURO-150 PO (11:23)
[2024-10-16] MEDS: magnesium hydroxide 30ml (MOM) UD suspension PO PRN (11:48)
[2024-10-16] MEDS: EMPAGLIFLOZIN 10 MG TABLET PO SCH (11:49)
--- NOTE | 2024-10-16 14:56 | DISCHARGE SUMMARY-Residence ---
Discharge Summary Providers to CC Resident Creating Document: MARTHAMARTHA ADAMSDARCIE Feliz, RES ~ Discharge Summary Admission Diagnosis: SOB Hospital Course DATE OF ADMISSION: 10/13/2024 DATE OF DISCHARGE: 10/16/2024 Laboratory: WBC 9.6, hemoglobin 10.2, hematocrit 31.2, MCV 75, platelet count 281, sodium 145, potassium 3.9, chloride 108, carbon dioxide 31.4, BUN 26, creatinine 1.00, GFR 53, glucose 108, A1c 6.2. Imaging: Ultrasound of the chest: Small bilateral pleural effusions. Thoracentesis not p erformed at this time. Echocardiogram ultrasound: OverallLVEF is 60%. LV is normal in size with mild septal hypertrophy. Overall systolic function is normal. RV appears mildly dilated with normal contractility. RVSP is estimated at 50 mmHG. Trileaflet AV appears sclerotic without stenosis. No insufficiency. Mild toModerate mitral regurgitation. Trace tricuspid regurgitation. Trace pulmonic regurgitation. There is no pericardial effusion. Vascular ultrasound: No right or left femoropopliteal venous thrombosis. Checks x-ray: Small right pleural effusion and bibasilar opacities. Trace left pleural effusion. Chest/thorax CTA: No evidence for pulmonary embolism. Moderate right and small left pleural effusions with overlying atelectasis. Mild interlobular septal thickening, may be seen with interstitial pulmonary edema or pulmonary vascular congestion in the appropriate clinical setting. Additional findings as described above. Discharge Diagnosis\Comment: Bacterial pneumonia: Covering Gram-positive and Gram-negative microorganisms Curb 65: 2 moderate risk group: 6.8% 30 day mortality Small Bilateral pleural effusions Acute exacerbation of diastolic congestive heart failure with preserved ejection fraction with ejection fraction of 60% Cor pulmonale Pulmonary embolism-ruled out Wells score: 3, D-dimer elevated Acute on chronic kidney failure, possible ATN Interstitial nephritis History of recent loose stool Ulcerative colitis Wilks's esophagus GERD Operations\Procedures: None Consultants: None Complications: None Condition on DC: Stable New Medications: Furosemide (Lasix) 20 Mg Tablet 20 MG PO DAILY for 10 Days, #10 TAB Lactobacillus Rhamnosus (Culturelle) 10 Billion Cell Capsule 1 EACH PO BID for 30 Days, #60 CAP Metoprolol Succinate (Metoprolol Succinate) 25 Mg Tab.sr.24h 1 TAB PO DAILY for 30 Days, #30 TAB 0 Refills Pantoprazole Sodium (Pantoprazole Sodium) 40 Mg Tablet. 40 MG PO DAILY for 30 Days, #30 TAB.SR Cefdinir (Cefdinir) 300 Mg Capsule 1 CAP PO Q12H for 3 Days, #6 CAP 0 Refills Empagliflozin (Jardiance) 10 Mg Tablet 10 MG PO DAILY for 30 Days, #30 TAB Losartan Potassium (Losartan Potassium) 25 Mg Tablet 25 MG PO DAILY for 30 Days, #30 TAB Continued Medications: Balsalazide Disodium (Balsalazide Disodium) 750 Mg Capsule 1 CAP PO BID Calcium Carbonate (Calcium) 600 Mg Tablet PO DAILY Cholecalciferol (Vitamin D) 400 Unit Tablet PO DAILY Simvastatin (Zocor) 10 Mg Tablet 1 TABLET PO HS, #30 TABLET 5 Refills Discontinued Medications: Omeprazole (Omeprazole) 20 Mg Capsule.dr 1 CAP PO BID, #30 CAP 5 Refills Discharge Summary: HPI: 84-year-old female patient with past medical history of ulcerative colitis, Wilks esophagus came to the hospital with chief complaint of shortness of breath. The patient mentioned that she started feeling shortness of breath appr oximately three weeks ago. Among the exacerbating factors the patient mentioned that her symptoms is worse with activity being able to walk half a block before she gets short of breath The patient also endorses orthopnea which started approximately one month ago. She currently uses one pillow for sleeping but she noticed shortness of breath when she lays down flat or over her side. Associated to her shortness of breath she also endorses bilateral lower extremity swelling and pain 7/10 in intensity, without radiation, described as sharp pain, which started approximately at the same time. The patient also mentioned diarrhea which started one month ago, she has been following her primary care physician Dr. Zapata and a new medication for ulcerative colitis was started. The patient endorses that she has been having diarrhea, her last episode this morning described as brown in color, liquid, denies any recent history of travel or immobilization. The patient currently denies chest pain, palpitations, abdominal pain, urinary symptoms. Hospital course: Atrial year old female patient admitted to the hospital with chief complaint of shortness of breaths. On physical exam 3+ pedal edema was evidenced. Vascular ultrasound was obtained due to the suspicion of deep vein thrombosis with negative result for DVT. On chest x-ray bilateral basilar pneumonia is evidenced, presence of pleural mostly in the right side is evidenced. Due to elevated D-dimer CT angiogram was obtained with negative result for pulmonary embolism. On echocardiogram normal ejection fraction is evidenced but mild septal hypertrophy, RVSP of 50 mmHg is noted showing cor pulmonale. The patient was treated with diuretics, due to the pneumonia antibiotics was started. The patient reported significant improvement of shortness of breaths, lower extremities without swollen at the day of discharge. Physical therapy evaluated the patient who mentioned that the patient does not need PT. The patient remained hemodynamically stable. The patient will be discharged home. Discharge course: The patient is currently hemodynamically stable. The patient will be discharged with the following instructions: Come back to the emergency department or call 911 if shortness of breath, worsening swelling of the lower extremities, chest pain, fever sensation, palpitations is evidenced. Follow-up with your primary care physician Dr. Zapata within 15 days. Take cefdinir one capsule of 300 mg twice daily for three days. Take empagliflozin one tablet of 10 mg daily. Take Culturelle one capsule twice daily. Take losartan 25 mg daily. Take metoprolol succinate 25 mg daily. We will stop your medication omeprazole. We are starting pantoprazole 40 mg daily. Continue your home medication balsalazide 750 mg twice daily. Continue your home medications simvastatin 10 mg daily at bedtime. Continue calcium carbonate and cholecalciferol. Physical exam: Vital Signs Date Time Temp Pulse Resp B/P (MAP) Pulse Ox O2 Delivery O2 Flow Rate FiO2 10/16/24 12:24 Room Air 10/16/24 12:00 98.0 75 17 151/56 (87) 99 10/16/24 09:01 21 10/16/24 08:54 0 General: Well alert, well oriented, not confused, not agitated, not in acute distress, well cooperated during the physical. HEENT: Conjunctive are pink, sclerae clear, no icterus, pupil is equal in both sides, reactive to light, no ear discharge, no pharyngeal erythema or an edema. Neck: Supple, no JVD, no lymphadenopathy and thyromegaly. Chest: Equal air entry on both lungs, presence of crackles in bilateral [id number], mild dullness to percussion in bilateral bases of the lungs. Cardiovascular: S1-S2 regular sinus rhythm and, regular rate, no gallops, no rubs, no murmurs Abdomen: No visible peristalsis, Bowel sounds present on auscultation, soft, nontender, no guarding, no rigidity Extremities: No obvious deformities, no pitting pedal edema, capillary refill intact, peripheral pulsations are intact on both sides Central Nervous System: No focal neurological deficits, no motor or sensory weakness in all 4 extremities, could move all 4 extremities, 2+ deep tendon reflexes, negative Babinski. Musculoskeletal: No joint swelling, deformities, inflammations, and no scoliosis and back tenderness Skin: Warm and dry. *Problems/Diagnosis: (1) Pneumonia Status: Acute (2) Hypertension Status: Chronic (3) Ulcerative colitis Status: Chronic (4) Barretts esophagus Status: Chronic (5) Acute kidney injury superimposed on CKD Status: Resolved (6) Heart failure Status: Acute Total Time Spent on D/C: Up to 30 Minutes Date of Service: Oct 16, 2024 Billing Provider: SIMEON VERMA MD, FRANCO LUIS, RES Oct 16, 2024 14:47
== END 2024-10-16 12:45 | disposition home or self-care (01) | DRG 177 ==
LOC: ER 10:30 → ED HOLD 12:34 → ORTHO 4S 15:09 → SUR 3N 10-16 11:57
PROVIDERS: ADMIT Family Medicine; ATTEND Family Medicine
PROC: B32T1ZZ Computerized Tomography (CT Scan) of Left Pulmonary Artery using Low Osmolar Contrast (ICD-10-PCS; principal; 2024-10-13)
PROC: B3201ZZ Computerized Tomography (CT Scan) of Thoracic Aorta using Low Osmolar Contrast (ICD-10-PCS; 2024-10-13)
PROC: B32S1ZZ Computerized Tomography (CT Scan) of Right Pulmonary Artery using Low Osmolar Contrast (ICD-10-PCS; 2024-10-13)
DX: J15.69 Pneumonia due to other Gram-negative bacteria (principal); I50.33 Acute on chronic diastolic (congestive) heart failure; N17.0 Acute kidney failure with tubular necrosis; I13.0 Hypertensive heart and chronic kidney disease with heart failure and stage 1 through stage 4 chronic kidney disease, or unspecified chronic kidney disease; K51.90 Ulcerative colitis, unspecified, without complications; K21.9 Gastro-esophageal reflux disease without esophagitis; N18.9 Chronic kidney disease, unspecified; J15.9 Unspecified bacterial pneumonia; I27.81 Cor pulmonale (chronic); K22.70 Barrett's esophagus without dysplasia; Z87.891 Personal history of nicotine dependence; Z90.49 Acquired absence of other specified parts of digestive tract; Z90.710 Acquired absence of both cervix and uterus; Z79.899 Other long term (current) drug therapy
CPT/HCPCS: 36415; 71045; 71275; 76604; 80053; 81003; 82570; 83036; 83605; 83735; 83880; 83930; 83935; 84145; 84156; 84300; 84443; 84484; 84540; 85025; 85379; 85610; 85651; 85730; 86140; 87040; 87081; 87207; 93005; 93306; 93970; 94640; 94760; 99285; A6449; G0378; J0696; J1938; J1940; J2919; J7030; J7040; J7120; J7512; Q9967

== ENCOUNTER 2024-11-30 12:15 | Outpatient (CLI) | payer BC ==
[~2024-11-30 12:15] MED LIST changes: -ASCO500C18 PO; +BALS750C PO; +CEFD300C3 PO; +EMPA10TA PO; +FURO-150 PO; +LACT1CAP26 PO; -LIDO700A32 TOP; +LOSA25TA41 PO; -MAGN400C PO; +METO-395 PO; -OMEP20CA15 PO; +PANT40TA54 PO
--- NOTE | 2024-11-30 13:34 | RADIOLOGY REPORT ---
INDICATION: CHRONIC SINUSITIS, UNSPECIFIED EXAM DATE: 11/30/2024 12:56 PM COMPARISON: None TECHNIQUE: CT of the sinuses without intravenous contrast. RADIATION DOSE: CTDIvol: 55 mGy, DLP: 674 mGy*cm FINDINGS: Partial opacification of the right maxillary sinus containing air and fluid. The left maxillary sinus is clear. The frontal sinuses are clear. The ethmoid air cells are clear bilaterally. The sphenoid sinuses are clear. The ostiomeatal unit complexes appear patent bilaterally. The cribriform plate and corina a papyracea appear grossly intact. No abnormality of the orbits or globes is identified. The visual ized brain is unremarkable. The surrounding soft tissues and osseous structures are unremarkable. IMPRESSION: 1. Right maxillary sinusitis
== END 2024-11-30 23:59 | disposition home or self-care (01) ==
LOC: RAD 12:15
PROVIDERS: ATTEND Specialist
DX: J32.0 Chronic maxillary sinusitis (principal); R09.82 Postnasal drip
CPT/HCPCS: 70486